=== PATIENT | male | born 1990 | race Caucasian/White ===

== ENCOUNTER 2020-09-07 18:09 | Emergency (ER) | payer SELFPAY ==
[~2020-09-07] VITALS: Ht 177.8 cm; Wt 86.2 kg
[2020-09-07 18:12] VITALS: BP_SYST 128
[2020-09-07] MEDS ORDERED: SULFAMETHOXAZOLE/TRIMETHOPR DS 1 TABLET PO ONE (20:00)
[2020-09-07] MEDS ORDERED: SULF1TAB48 PO (20:02)
[2020-09-07 20:20] VITALS: BP_SYST 123
== END 2020-09-07 20:20 | disposition home or self-care (01) ==
LOC: SED 18:09
DX: L03.115 Cellulitis of right lower limb (principal); F12.90 Cannabis use, unspecified, uncomplicated; F17.290 Nicotine dependence, other tobacco product, uncomplicated; Z71.6 Tobacco abuse counseling; Z79.899 Other long term (current) drug therapy
CPT/HCPCS: 99283

== ENCOUNTER 2022-10-27 17:49 | Emergency (ER) | payer MEDICAID ==
[~2022-10-27] VITALS: Ht 177.8 cm; Wt 99.8 kg
[~2022-10-27 17:49] MED LIST: SULF1TAB48 PO
[2022-10-27 18:08] VITALS: BP_SYST 155; PULSE 83; RESP 18; TEMP 97.3; O2SAT 100
[2022-10-27] MEDS ORDERED: IBUPROFEN 800 MG TABLET PO ONE (20:00)
[2022-10-27] MEDS ORDERED: DIPHENHYDRAMINE HCL 50 MG CAPSULE PO ONE (20:00)
[2022-10-27] MEDS ORDERED: cephALEXin 500 MG CAPSULE PO ONE (20:00)
[2022-10-27] MEDS ORDERED: IBUP-1971 PO (20:33)
[2022-10-27] MEDS ORDERED: CEPH-548 PO (20:33)
[2022-10-27] MEDS ORDERED: DIPH28.34 TP (20:33)
[2022-10-27 20:37] VITALS: BP_SYST 119; PULSE 75; RESP 18; TEMP 98.1; O2SAT 98
== END 2022-10-27 20:37 | disposition home or self-care (01) ==
LOC: SED 17:49
DX: S90.861A Insect bite (nonvenomous), right foot, initial encounter (principal); L03.115 Cellulitis of right lower limb; Z79.899 Other long term (current) drug therapy; W57.XXXA Bitten or stung by nonvenomous insect and other nonvenomous arthropods, initial encounter; Y93.89 Activity, other specified; Y92.89 Other specified places as the place of occurrence of the external cause; Y99.8 Other external cause status
CPT/HCPCS: 99284; Q0163